=== PATIENT | male | born 1970 | race Caucasian/White ===

== ENCOUNTER → 2023-04-19 08:07 | Outpatient (CLI) | payer OTHER, SELFPAY ==
[2023-04-19 08:38] LABS: Add Manual Diff / Slide Review NO; Basophils Absolute Auto 0 /uL (0-100); Basophils Percent Auto 0.8 % (0-2); Eosinophils Absolute Auto 0 /uL (0-450); Eosinophils Percent Auto 1.3 % (2-4); Hematocrit 45.9 % (41-53); Lymphocytes Absolute Auto 900 /uL (1100-4500); Lymphocytes Percent Auto 25.8 % (25-40); Mean Corpuscular HGB Conc 34.7 % (30-36); Mean Corpuscular Hemoglobin 29.5 PG (26-34); Mean Corpuscular Volume 84.9 fL (80-100); Monocytes Absolute Auto 300 /uL (0-900); Monocytes Percent Auto 7.7 % (3-14); Neutrophils Absolute Auto 2200 /uL (1500-7000); Neutrophils Percent Auto 64.4 % (50-75); Platelet Count 216 X10^3/uL (150-400); Red Blood Cell Count 5.41 X10^6/uL (4.5-5.9); Red Cell Distribution Width 13.8 % (11.6-14.8); White Blood Cell Count 3.4 X10^3/uL (4.5-11.0)
[2023-04-19 09:01] LABS: Cholesterol 220 mg/dL (140-199); HDL Cholesterol 59 mg/dL (40-60); LDL Cholesterol Calculated 130 mg/dL (<100); Triglycerides 157 mg/dL (35-150)
[2023-04-27 07:09] LABS: Percent Free Testosterone 2.53 % (1.50-4.20); Testosterone Free 9.79 ng/dL (5.00-21.00); Testosterone Total 386.8 ng/dL (264.0-916.0)
== END ==
PROVIDERS: PCP Internal Medicine; Referring Provider Internal Medicine; Visit Provider Internal Medicine
DX: Z00.00 Encounter for general adult medical examination without abnormal findings (principal); E78.5 Hyperlipidemia, unspecified; E29.1 Testicular hypofunction
CPT/HCPCS: 36415; 80061; 83036; 84402; 84403; 85025

== ENCOUNTER → 2024-04-21 08:47 | Outpatient (CLI) | payer OTHER, SELFPAY ==
[2024-04-21 10:17] LABS: Add Manual Diff / Slide Review NO; Basophils Absolute Auto 0 /uL (0-100); Basophils Percent Auto 0.6 % (0-2); Eosinophils Absolute Auto 0 /uL (0-450); Eosinophils Percent Auto 0.8 % (2-4); Hematocrit 47.7 % (41-53); Hemoglobin 16.8 g/dL (13.5-17.5); Lymphocytes Absolute Auto 1500 /uL (1100-4500); Mean Corpuscular HGB Conc 35.2 % (30-36); Mean Corpuscular Hemoglobin 29.8 PG (26-34); Mean Corpuscular Volume 84.7 fL (80-100); Monocytes Absolute Auto 300 /uL (0-900); Monocytes Percent Auto 5.6 % (3-14); Neutrophils Absolute Auto 3900 /uL (1500-7000); Platelet Count 234 X10^3/uL (150-400); Red Blood Cell Count 5.63 X10^6/uL (4.5-5.9); Red Cell Distribution Width 13.5 % (11.6-14.8); White Blood Cell Count 5.8 X10^3/uL (4.5-11.0)
[2024-04-21 10:52] LABS: Cholesterol 260 mg/dL (140-199); HDL Cholesterol 73 mg/dL (40-60); LDL Cholesterol Calculated 165 mg/dL (<100); Triglycerides 111 mg/dL (35-150)
[2024-04-21 11:21] LABS: Hemoglobin A1C% w Est Avg Glu 4.8 % (4.0-6.0)
[2024-04-25 12:07] LABS: Percent Free Testosterone 3.29 % (1.50-4.20); Testosterone Free 10.71 ng/dL (5.00-21.00); Testosterone Total 325.6 ng/dL (264.0-916.0)
== END ==
PROVIDERS: PCP Internal Medicine; Referring Provider Internal Medicine; Visit Provider Internal Medicine
DX: Z00.00 Encounter for general adult medical examination without abnormal findings (principal); E78.2 Mixed hyperlipidemia; E29.1 Testicular hypofunction
CPT/HCPCS: 36415; 80061; 83036; 84402; 84403; 85025

== ENCOUNTER 2025-04-24 10:34 | Emergency (ER) | payer OTHER, SELFPAY ==
[2025-04-24 10:55] VITALS: BP 142/86; PULSE 71; RESP 18; TEMP 37.1; O2SAT 98; BMI 28.5
[2025-04-24] MEDS: ONDANSETRON 4 MG/2 ML INJ IV (11:18)
[2025-04-24] MEDS: KETOROLAC 30 MG/ML VIAL 15 MG IV (11:22)
--- NOTE | 2025-04-24 11:27 | ED_ITS ---
HPI - Abdominal Pain General Chief Complaint: Abdominal Pain Stated Complaint: Kidney stone Time Seen by Provider: 04/24/25 11:09 Source: patient Mode of arrival: Family Vehicle History of Present Illness HPI narrative: Patient is a 54-year-old male presenting today with sudden onset left flank pain radiating to his left groin. It started suddenly this morning he feels nauseous and comfortable. No prior history of kidney stones but his dad has had them. He is overall healthy and takes no medication. Feels nauseous but no vomiting no fever or chills Related Data Previous Rx's ?Medication ?Instructions ?Recorded hydrocodone 5 mg-acetaminophen 325 1 tab PO Q6H PRN pa in #10 tabs 04/24/25 mg tablet ondansetron 4 mg disintegrating 4 mg PO Q8H PRN nausea and 04/24/25 tablet vomiting #10 tabs Allergies Allergy/AdvReac Type Severity Reaction Status Date / Time cephalexin Allergy Severe Difficulty Verified 04/24/25 10:55 Breathing Patient History Social History Smoking Status: Former smoker Smoking Status: Former smoker tobacco type: cigarettes Exam Initial Vital Signs Initial Vital Signs: Vital Signs Temperature 98.7 F 04/24/25 10:55 Pulse Rate 71 04/24/25 10:55 Respiratory Rate 18 04/24/25 10:55 Blood Pressure 142/86 H 04/24/25 10:55 Pulse Oximetry 98 04/24/25 10:55 Oxygen Delivery Method Room Air 04/24/25 10:55 GENERAL: Alert 54-year-old male appears unkempt and in no acute distress. HEENT: Head atraumatic,EOMI, pupils reactive, face symmetric, moist mucous membranes CARDIOVASCULAR: Regular rate and rhythm without murmurs, rubs or gallops. RESPIRATORY: Breath sounds equal bilaterally, no wheezes rales or rhonchi. ABDOMEN: Soft, nontender. Normoactive bowel sounds all 4 quadrants. No guarding or rebound. [ : Left flank tender EXTREMITIES: Normal range of motion, no clubbing or edema. Neurovascularly intact NEUROLOGICAL: Alert and oriented x4.Normal gait and speech. Cranial nerves II through XII grossly intact. SKIN: Warm, dry, no laceration, no petechiae, no rashes or lesions. Course Orders Ordered: ED Orders 04/24/25 11:13 Complete Blood Count AUTO DIFF Stat Comprehensive Metabolic Panel Stat Lipase Stat 04/24/25 11:31 CT kidney ureter bladder (KUB) Stat 04/24/25 12:51 Urine Culture Stat Urine Microscopic Stat Ondansetron HCl (Ondansetron 4 Mg/2 Ml Inj) 4 mg IV NOW PRN PRN Reason: Nausea And Vomiting Last Admin: 04/24/25 11:18 Dose: 4 mg Documented By: BIRGIT Ondansetron HCl (Ondansetron 4 Mg Odt) 4 mg PO NOW PRN PRN Reason: Nausea And Vomiting Discontinued Medications Hydrocodone Bitart/Acetaminophen (Hydrocodone/Acet 5/325 Tablet) 1 tab PO NOW ONE Stop: 04/24/25 13:19 Last Admin: 04/24/25 13:41 Dose: 1 tab Documented By: GARY Ketorolac Tromethamine (Ketorolac 30 Mg/Ml Vial) 15 mg IV NOW ONE Stop: 04/24/25 11:18 Last Admin: 04/24/25 11:22 Dose: 15 mg Documented By: WHITLEY Vital Signs Vital signs: Vital Signs - 8 hr 04/24/25 10:55 Temperature 98.7 F Pulse Rate 71 Respiratory Rate 18 Blood Pressure 142/86 H Pulse Oximetry 98 Oxygen Delivery Method Room Air MDM - Abdominal Pain Lab Data 04/24/25 11:13 04/24/25 11:13 Labs: Lab Results 04/24/25 Range/Units 11:13 WBC 6.2 (4.5-11.0) X10^3/uL RBC 5.54 (4.5-5.9) X10^6/uL Hgb 16.4 (13.5-17.5) g/dL Hct 46.1 (41-53) % MCV 83.2 (80-100) fL MCH 29.7 (26-34) PG MCHC 35.6 (30-36) % RDW 13.3 (11.6-14.8) % Plt Count 201 (150-400) X10^3/uL Neut % (Auto) 81.2 H (50-75) % Lymph % (Auto) 12.5 L (25-40) % [place] % (Auto) 4.7 (3-14) % Eos % (Auto) 0.6 L (2-4) % Baso % (Auto) 1.0 (0-2) % Neut # (Auto) 5000 (8490-5000) /uL Lymph # (Auto) 800 L (3081-1253) /uL [place] # (Auto) 300 (0-900) /uL Eos # (Auto) 0 (0-450) /uL Baso # (Auto) 100 (0-100) /uL Sodium 137 (137-145) mmol/L Potassium 4.6 (3.4-5.1) mmol/L Chloride 104 (98-107) mmol/L Carbon Dioxide 26 (22-32) mmol/L BUN 16 (9-20) mg/dL Creatinine 1.02 (0.66-1.25) mg/dL Estimated GFR > 60 (>60) mL/min BUN/Creatinine Ratio 15.7 (6-22) Glucose 123 H (70-99) mg/dL Calcium 9.5 (8.4-10.2) mg/dL Total Bilirubin 0.9 (0.2-1.3) mg/dL AST 35 (17-59) IU/L ALT 27 (<50) IU/L Alkaline Phosphatase 78 (38-126) U/L Total Protein 7.4 (6.3-8.2) g/dL Albumin 4.8 (3.5-5.0) g/dL Globulin 2.6 (1.7-4.1) g/dL Albumin/Globulin Ratio 1.8 (1.0-2.8) Lipase 86 (23-300) U/L Point of care testing: Urine Dip Bedside Urine Glucose Negative Bedside Urine Bilirubin - Negative Bedside Urine Ketone - Negative Urine Specific [place] 1.020 Bedside Urine Occult Blood +++ Bedside Urine pH 6.0 Bedside Urine Protein +/- 15 Bedside Urine Urobilinogen - Negative Bedside Urine Nitrite - Negative Bedside Urine Leukocytes - Negative Esterase Imaging Data CT scan - abdomen/pelvis: Radiologist's Impression: PROCEDURE: CT KIDNEY URETER BLADDER (KUB) INDICATIONS: left flank pain TECHNIQUE: CT of the abdomen and pelvis was obtained without intravenous contrast. Coronal and sagittal reformats were performed. For radiation dose reduction, the following was used: automated exposure control, adjustment of mA and/or kV according to patient size. COMPARISON: None. FINDINGS: Image quality: Diagnostic. Lower Chest: No significant findings. ABDOMEN: Liver: No contour-deforming mass. Gallbladder: No radiopaque gallstones or wall thickening. Biliary ducts: No biliary dilation. Pancreas: No ductal dilation. Spleen: Size is within normal limits. Adrenal Glands: No adrenal nodules. Kidneys and Ureters: Mild left hydroureter no right hydronephrosis. No right stone.. No contour-deforming mass. Multiple small, 3-4 mm, nonobstructive intrarenal stones in the left kidney. Stomach and Bowel: Normal colonic caliber, without significant wall thickening. Normal appendix. Peritoneum: No abnormal intraperitoneal fluid. No free air. Ventral Wall: No significant hernia. Abdominal Nodes: No retroperitoneal or mesenteric adenopathy by size criteria. Vessels: Aorta and inferior vena cava are normal in size. PELVIS: Pelvic Organs: Unremarkable. Bladder: A 4 mm stone within the urinary bladder.. Pelvic Nodes: No enlarged lymph nodes. Miscellaneous: No inguinal hernias are seen. Partially visualized intradural catheter in the inferior thoracic spine and superior lumbar spine with tip at L3. Likely shunt tubing courses along the midline posterior body wall and subcutaneous fat and is coiled in the left mid abdominal wall with adjacent postprocedural changes. Recommend correlation with clinical history. Bones: No aggressive osseous abnormality. Multilevel degenerative changes of the thoracic and lumbar spine. IMPRESSION: Likely recent passage of a 4 mm stone, located within the urinary bladder, with mild left hydroureter. Additional multiple nonobstructive 3-4 mm left intrarenal stones. Intradural catheter tubing in the thoracic and lumbar spine with Likely chronic fracturing of the shunt tubing in the posterior back soft tissues at L3 and residual tubing in the left mid abdomen. This may represent prior infusion catheter or prior shunt catheter. Recommend correlation with clinical history. Dictated by: Chas Cooper M.D. on 04/24/2025 at 11:16 Approved by: Chas Cooper M.D. on 04/24/2025 at 11:21 [facility] Narrative Medical decision making narrative: Patient is a healthy 54-year-old male no prior history of kidney stones presenting today with significant left flank pain radiating around to his groin. This is concerning for nephrolithiasis. Blood work has been reviewed CBC no abnormalities CMP within normal limits no YAMILETH Urinalysis negative for UTI CT shows recent passage stone dairy bladder. Additional multiple nonobstructive P2 for intrarenal stone Patient was given Toradol it did take the edge off is still kind of uncomfortable. Would like something else for pain he is given a Poyntelle. Discussion with him about pain control at home and when to return to ED. Discharge Plan Departure Patient Disposition: Home Clinical Impression: Calculus of kidney Instructions: DI for Kidney Stones Activity Restrictions/Additional Instructions: *You have been diagnosed with kidney stone *What to do: It looks like you recently passed a 4 mm your kidney stone. You can still be sore for the next day or 2. You do not have any infection so no need for antibiotic *Continue to take medications as directed Motrin 600 mg every 6 hours for [id number] Poyntelle 1 tablet every 6 hours if needed for severe pain Zofran 4 mg every 8 hours if needed for nausea or vomiting *Follow up with your primary care provider in 2-3 days or call [phone] *Return to ER if you should have increasing pain fever persistent vomiting or any new, worsening or concerning symptoms CONTROLLED SUBSTANCE DISCHARGE (Narcotoic/benzodiazepine/Flexeril/Phenergan) 1. You have been prescribed narcotic medications, it does have acetaminophen/Tylenol/paracetamol in it, DO NOT TAKE MORE THAN 4,00mg in 24 hours of Tylenol. TRAMADOL DOES NOT CONTAIN TYLENOL 2. Please understand that we cannot provide further refills of narcotics, benzodiazepines or controlled substances through the ED and her pain management will need to be through your provider. 3. While on these medications you cannot drive or operate heavy machinery. 4. You cannot sign legal documents or perform any duties such as this. 5. As long as you're taking opiate pain medications he should also be taking a stool softener such as Colace, Dulcolax, MiraLAX or prune juice, to help avoid constipation. Prescriptions: New hydrocodone-acetaminophen 5-325 mg tablet 1 tab PO Q6H PRN (Reason: pain) Qty: 10 0RF ondansetron 4 mg tablet,disintegrating 4 mg PO Q8H PRN (Reason: nausea and vomiting) Qty: 10 0RF Referrals: Jin Melchor MD [Primary Care Provider, Internal Medicine] Stand Alone Forms: Patient Portal/API
[2025-04-24 11:28] LABS: Add Manual Diff / Slide Review NO; Hematocrit 46.1 % (41-53); Hemoglobin 16.4 g/dL (13.5-17.5); Lymphocytes Absolute Auto 800 /uL (1100-4500); Mean Corpuscular HGB Conc 35.6 % (30-36); Mean Corpuscular Hemoglobin 29.7 PG (26-34); Mean Corpuscular Volume 83.2 fL (80-100); Platelet Count 201 X10^3/uL (150-400)
--- NOTE | 2025-04-24 11:31 | DI.CT.S_ITS ---
PROCEDURE: CT KIDNEY URETER BLADDER (KUB) INDICATIONS: left flank pain TECHNIQUE: CT of the abdomen and pelvis was obtained without intravenous contrast. Coronal and sagittal reformats were performed. For radiation dose reduction, the following was used: automated exposure control, adjustment of mA and/or kV according to patient size. COMPARISON: None. FINDINGS: Image quality: Diagnostic. Lower Chest: No significant findings. ABDOMEN: Liver: No contour-deforming mass. Gallbladder: No radiopaque gallstones or wall thickening. Biliary ducts: No biliary dilation. Pancreas: No ductal dilation. Spleen: Size is within normal limits. Adrenal Glands: No adrenal nodules. Kidneys and Ureters: Mild left hydroureter no right hydronephrosis. No right stone.. No contour-deforming mass. Multiple small, 3-4 mm, nonobstructive intrarenal stones in the left kidney. Stomach and Bowel: Normal colonic caliber, without significant wall thickening. Normal appendix. Peritoneum: No abnormal intraperitoneal fluid. No free air. Ventral Wall: No significant hernia. Abdominal Nodes: No retroperitoneal or mesenteric adenopathy by size criteria. Vessels: Aorta and inferior vena cava are normal in size. PELVIS: Pelvic Organs: Unremarkable. Bladder: A 4 mm stone within the urinary bladder.. Pelvic Nodes: No enlarged lymph nodes. Miscellaneous: No inguinal hernias are seen. Partially visualized intradural catheter in the inferior thoracic spine and superior lumbar spine with tip at L3. Likely shunt tubing courses along the midline posterior body wall and subcutaneous fat and is coiled in the left mid abdominal wall with adjacent postprocedural changes. Recommend correlation with clinical history. Bones: No aggressive osseous abnormality. Multilevel degenerative changes of the thoracic and lumbar spine. IMPRESSION: Likely recent passage of a 4 mm stone, located within the urinary bladder, with mild left hydroureter. Additional multiple nonobstructive 3-4 mm left intrarenal stones. Intradural catheter tubing in the thoracic and lumbar spine with Likely chronic fracturing of the shunt tubing in the posterior back soft tissues at L3 and residual tubing in the left mid abdomen. This may represent prior infusion catheter or prior shunt catheter. Recommend correlation with clinical history. Dictated by: Chas Cooper M.D. on 04/24/2025 at 11:16 Approved by: Chas Cooper M.D. on 04/24/2025 at 11:21
[2025-04-24 11:39] LABS: Alanine Aminotransferase 27 IU/L (<50); Albumin 4.8 g/dL (3.5-5.0); Albumin Globulin Ratio 1.8 (1.0-2.8); Alkaline Phosphatase 78 U/L (38-126); Blood Urea Nitrogen 16 mg/dL (9-20); Calcium 9.5 mg/dL (8.4-10.2); Carbon Dioxide 26 mmol/L (22-32); Chloride 104 mmol/L (98-107); Estimated Glomerular Filt Rate > 60 mL/min (>60); Globulin 2.6 g/dL (1.7-4.1); Glucose 123 mg/dL (70-99); HEMOLYSIS 25 (0-50); Lipase 86 U/L (23-300); Potassium 4.6 mmol/L (3.4-5.1); Sodium 137 mmol/L (137-145); Total Protein 7.4 g/dL (6.3-8.2)
[2025-04-24 13:54] VITALS: BP 127/70; PULSE 62; RESP 16; O2SAT 98
[2025-04-24 14:10] LABS: Culture Indicated Urine Cult Not Indicated
== END 2025-04-24 13:54 | disposition home or self-care (01) ==
PROVIDERS: Emergency Provider Emergency Medicine; PCP Internal Medicine
DX: N20.0 Calculus of kidney (principal)
CPT/HCPCS: 36415; 74176; 80053; 81003; 81015; 83690; 85025; 87086; 96374; 96375; 99284; J1885; J2405

== ENCOUNTER → 2025-04-27 09:58 | Outpatient (CLI) | payer OTHER, SELFPAY ==
[2025-04-27 10:46] LABS: Add Manual Diff / Slide Review NO; Hematocrit 43.8 % (41-53); Hemoglobin 15.6 g/dL (13.5-17.5); Lymphocytes Absolute Auto 1100 /uL (1100-4500); Mean Corpuscular HGB Conc 35.7 % (30-36); Mean Corpuscular Hemoglobin 29.9 PG (26-34); Mean Corpuscular Volume 83.7 fL (80-100); Platelet Count 195 X10^3/uL (150-400)
[2025-04-27 11:06] LABS: Hemoglobin A1C% w Est Avg Glu 5.0 % (4.0-6.0)
[2025-04-27 11:08] LABS: Cholesterol 256 mg/dL (140-199); HDL Cholesterol 73 mg/dL (40-60); Triglycerides 96 mg/dL (35-150)
[2025-04-27 11:40] LABS: Prostate Specific Antigen 3.16 ng/mL (0.10-4.00)
== END ==
LOC: LAB 10:00
PROVIDERS: PCP Internal Medicine; Referring Provider Internal Medicine; Visit Provider Internal Medicine
DX: Z00.00 Encounter for general adult medical examination without abnormal findings (principal); Z12.5 Encounter for screening for malignant neoplasm of prostate; Z13.1 Encounter for screening for diabetes mellitus; E29.1 Testicular hypofunction
CPT/HCPCS: 36415; 80061; 83036; 84153; 84402; 84403; 85025